=== PATIENT | male | born 1965 | race Caucasian/White ===

== ENCOUNTER → 2022-08-23 08:12 | Outpatient (BNVA) | payer OTHER, SELFPAY | PROVIDERS: Family Provider Family Medicine; Referring Provider Nurse Practitioner Family; Visit Provider Nurse Practitioner Family | DX: M25.561 Pain in right knee (principal); G89.29 Other chronic pain | CPT/HCPCS: 73560; 73565 ==

== ENCOUNTER 2022-10-09 06:42 | Outpatient (CLI) | payer OTHER, SELFPAY ==
--- NOTE | 2022-10-09 07:15 | MR_ITS ---
WS: [id number] MRI RIGHT KNEE HISTORY: RIGHT knee pain for 8 months. No injury. COMPARISON: Radiographs 08/23/2022 Anterior cruciate ligament: No identifiable fibers are identified. The ligament is completely torn. Posterior cruciate ligament: Mild intrasubstance degeneration but no tear. Medial collateral ligament: Intact. Posterior lateral corner structures: Intact. Medial menisci: Horizontal tear in the posterior horn extends to the inferior articular surface. Raúl tional complex tear in the meniscal root. Blunting of the free edge. Marked irregularity along the lock rfaces of the meniscus. The anterior horn is normal. Lateral meniscus: Intact. Normal signal, size and shape. Extensor mechanism: Distal quadriceps tendon and patellar tendons are intact. Fluid and soft tissue: Moderate joint effusion. Moderate-sized Morocho's cyst. Osseous and articular structures: Patellofemoral compartment: Moderate narrowing lateral patellofemoral facet joint. Mild chondromalaci a. No marrow edema. Medial compartment: Moderate narrowing medial compartment with partially extruded meniscus. Complete loss of cartilage with marrow edema in the posterior tibial plateau. Lateral compartment: Mild narrowing of the lateral compartment with moderate chondromalacia. Signific ant fraying along the cartilage surface. Moderate marrow edema in the lateral posterior tibial platea u. MR/MR knee RT wo con* [id number] IMPRESSION: 1. Complete tear ACL. 2. Horizontal tear posterior horn medial meniscus with additional complex tear towards the meniscal root with fraying of the surfaces. 3. Moderate-sized Morocho's cyst and joint effusion. 4. 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 5. Marrow edema involving the posterior tibial plateau. No fracture. 6. Mild narrowing and moderate chondromalacia lateral compartment.
== END 2022-10-09 06:43 | disposition home or self-care (01) ==
LOC: RAD 06:43
PROVIDERS: Family Provider Family Medicine; Visit Provider Nurse Practitioner Family
DX: M71.21 Synovial cyst of popliteal space [Baker], right knee; M94.261 Chondromalacia, right knee; S83.241A Other tear of medial meniscus, current injury, right knee, initial encounter; X58.XXXA Exposure to other specified factors, initial encounter
CPT/HCPCS: 73721

== ENCOUNTER 2022-11-28 23:42 | Emergency (ER) | payer OTHER, SELFPAY ==
[2022-11-28 23:46] VITALS: BP 184/100; PULSE 80; RESP 18; TEMP 36.8; O2SAT 20; BMI 32.5
--- NOTE | 2022-11-29 00:23 | W.ED.EAR ---
HPI - Ear Problem General: Chief complaint: Ear Stated complaint: shingles, right ear pain Time Seen by Provider: 11/28/22 23:43 History of Present Illness: Patient is a 57-year-old male who comes to the ED with right ear pain. Patient had a rash develop on right side of forehead and saw his primary care provider 2 days ago and he was diagnosed with shingles and sent home with an antiviral medication that he takes 3 times a day. Today is the first day he took all 3 doses of antiviral medication. He also reports that 2 days ago he started developing sharp right ear pain as well. Pain comes and goes and says that the sharp episodes of pain in right ear are rated a 10 out of 10. He has taken ibuprofen and gabapentin at home and that has helped the pain some but tonight it got worse. He states that his right ear feels like there is a bunch of fluid in it. Denies any discharge from right ear. Associated symptoms: Reports ear or mastoid pain (Right ear); Denies fever(s), headache(s) or neck pain Review of Systems Const: Denies: fever(s), chills or fatigue Eyes: Denies: change in vision or eye discomfort ENMT: Reports: ear or mastoid pain (Right ear); Denies: throat pain, odynophagia, nasal discharge or nasal congestion Card: Denies: chest pain, palpitations, edema, swelling of feet/ankles, dyspnea on exertion or orthopnea Resp: Denies: dyspnea, productive cough or non-productive cough GI: Denies: abdominal pain, nausea, vomiting, diarrhea, constipation or hematochezia : Denies: flank pain, difficulty urinating, dysuria or hematuria Musc: Denies: neck pain, back pain or extremity swelling Skin/Breast: Reports: rash (Shingles type rash on right side of forehead); Denies: new lesions Neuro: Denies: headache(s), numbness in extremities or weakness in extremities PFSH ED PFSH: Medical History Hypertension Surgical History No pertinent past surgical history Social History Smoking and tobacco status: former smoker Physical Exam Const: COMMON NORMALS: patient oriented x3 and alert GENERAL APPEARANCE: cooperative HENMT: COMMON NORMALS: normocephalic and external ears normal HEAD & SCALP: normocephalic EXTERNAL EAR: Yes external ears normal TYMPANIC MEMBRANE: TM abnormal TM laterality: bilateral erythematous and with fluid behind the TM MOUTH: Normal oral and palatal mucosa present THROAT: posterior oropharynx normal and uvula midline OTHER: Right side of forward patient has erythemic vesicular type rash on right side of forehead. Rash does not involve right ear. Facial rash appears like shingles type rash. Neck/C-Spine: COMMON NORMALS: supple GENERAL: Yes normal visual inspection Resp: COMMON NORMALS: normal respiratory effort, No retractions, No use of accessory muscles and clear to auscultation bilaterally AUSCULTATION: clear to auscultation bilaterally Cardio: COMMON NORMALS: regular rate, regular rhythm, S1 normal heart sound present, S2 normal heart sound present, No gallops present (Cardio), No clicks present (Cardio), No murmurs present (Cardio) and Peripheral pulses 2+ throughout RATE: regular rate RHYTHM: regular rhythm HEART SOUNDS: S1 normal heart sound present and S2 normal heart sound present PERIPHERAL PULSES: Peripheral pulses 2+ throughout GI: COMMON NORMALS: Normal to inspection, nondistended, normoactive bowel sounds present, Soft to palpation, non-tender and no masses PALPATION: Yes Soft to palpation : COMMON NORMALS: Yes no CVA tenderness BLADDER/KIDNEY EXAM: Yes no CVA tenderness Back/Pelvis: COMMON NORMALS: no CVA tenderness Extremity: COMMON NORMALS: normal to inspection Neuro: COMMON NORMALS: patient oriented x3 and CN's II-XII intact bilaterally SENSORIUM/ORIENTATION: Yes alert GAIT: Yes Normal gait present OTHER: Exam shows no facial weakness or paralysis. Skin: GENERAL SKIN EXAM: dry skin Course Vital Signs: Vital signs: Vital Signs Temperature 98.3 F 11/28/22 23:46 Pulse Rate 80 11/28/22 23:46 Respiratory Rate 18 11/28/22 23:46 Blood Pressure 184/100 11/28/22 23:46 Pulse Oximetry 20 L 11/28/22 23:46 MDM - Ear Medical Decision Making Patient is a 57-year-old male who comes to the ED with right ear pain. Patient had a rash develop on right side of forehead and saw his primary care provider 2 days ago and he was diagnosed with shingles and sent home with an antiviral medication that he takes 3 times a day. Today is the first day he took all 3 doses of antiviral medication. He also reports that 2 days ago he started developing sharp right ear pain as well. Pain comes and goes and says that the sharp episodes of pain in right ear are rated a 10 out of 10. Vitals are stable. Exam of patient shows otitis media. He does have shingle type rash on right side of forehead. No rash noted around right ear. No facial weakness or paralysis noted. Patient was given a dose of oxycodone here in the ED to help with pain. He was diagnosed with otitis media and shingles rash. He was told to continue taking his previously prescribed antiviral. He was sent home with a prescription for an antibiotic, hydrocodone for pain and prednisone. Return to ED precautions given. He was stable for discharge home and told to follow-up with primary care provider in the next 2 to 3 days for reevaluation. Patient understood and agreed with plan. Discharge Plan Discharge Patient Disposition: Home Clinical Impression: Otitis media Qualifiers: Otitis media type: unspecified Chronicity: acute Qualified Code(s): H66.90 - Otitis media, unspecified, unspecified ear Shingles rash Qualifiers: Herpes zoster complications: without complications Qualified Code(s): B02.9 - Zoster without complications Condition: Stable Prescriptions: New azithromycin 250 mg tablet 250 mg PO DAILY 4 Days Qty: 4 0RF Rx Instructions: start on day 2 of therapy prednisone 5 mg tablets,dose pack See Rx Instructions .ROUTE .COMPLEX Qty: 21 0RF Rx Instructions: prednisone 5 mg: take 8 tablets (40 mg) on Day 1; 7 tablets (35 mg) on Day 2; then decrease by 1 tablet every day until finished No Action celecoxib 100 mg capsule 100 mg PO BID gabapentin 100 mg capsule 100 mg PO DAILY lisinopril 20 mg tablet 20 mg PO DAILY Discharge Orders: Discharge ED (Routine); Ordered 11/29/22 Ordered By: Carl Diallo Discharge Diet: Regular Discharge Activity: Increase activity as tolerated Patient Instructions: Otitis Media - Adult, Shingles (ED) Activity Restrictions/Additional Instructions: Follow-up with medical provider as directed in the next 2 to 3 days for reevaluation. Take medications as prescribed. Return to the ER or your medical provider if condition worsens. Please read and understand discharge instructions. Thank you for choosing [facility] for your healthcare needs today. Please realize this is an emergency room and that we are providing you with a medical screening exam and this may not be complete and all inclusive of all the testing and or work up that you may need to determine your ailment or severity of your illness. It is very important that you follow up as instructed or that you return to the Emergency Department should you have concerns or if your condition changes or worsens in any way. Coding Level of Care Code ED Proof Machine Operator for Nancy Griffiths Exam Comprehensive
[2022-11-29] MEDS: oxyCODONE-APAP 5-325 mg Tablet 1 TAB PO ×2 (00:24→00:49)
[2022-11-29] MEDS: azithromycin 250 mg Tablet 500 MG PO (00:48)
== END 2022-11-29 01:06 | disposition home or self-care (01) ==
PROVIDERS: Emergency Provider Physician Assistant
DX: H66.91 Otitis media, unspecified, right ear (principal); B02.9 Zoster without complications; I10 Essential (primary) hypertension; Z87.891 Personal history of nicotine dependence
CPT/HCPCS: 96372; 99284; J2930; Q0144

== ENCOUNTER 2023-05-12 20:00 | Outpatient (CLI) | payer OTHER, SELFPAY | END 2023-05-12 20:01 | disposition home or self-care (01) | LOC: SLEEP 05-13 06:35 | PROVIDERS: Visit Provider Nurse Practitioner Family | DX: G47.33 Obstructive sleep apnea (adult) (pediatric) (principal) | CPT/HCPCS: 95811 ==

== ENCOUNTER → 2023-10-22 15:03 | Outpatient (BNVA) | payer OTHER, SELFPAY | PROVIDERS: Visit Provider Specialist | DX: M17.11 Unilateral primary osteoarthritis, right knee; M23.203 Derangement of unspecified medial meniscus due to old tear or injury, right knee | CPT/HCPCS: 73560; 73565 ==